=== PATIENT | female | born 1990 | race Caucasian/White ===

== ENCOUNTER 2017-09-17 18:02 | Emergency (ER) | payer BC ==
--- NOTE | 2017-09-17 18:13 | PDOC ---
Rapid Medical Evaluation Time Seen by Provider: 09/17/17 18:10 Medical Evaluation: 09/17/17 18:10 Pt presents with complaint of : lt abd pain, now nausea, diarrhea, ? black stool On brief exam: VSS I have ordered the following: ua, upreg, cbc, comp, stool for guaic Pt will go to the Emergency Dept for further workup: Discharge Disposition - Diagnosis Left lateral abdominal pain - Referrals - Patient Instructions - Post Discharge Activity
[2017-09-17 18:15] VITALS: TEMP 97.6
[2017-09-17 18:38] LABS: BASOPHIL 0.6 % (0-2.0); EOSINOPHIL 1.2 % (0-4.5); MCH 29.5 pg (25.7-33.7); MCHC 33.7 g/dl (32.0-36.0); MEAN CELL VOLUME 87.7 fl (80-96); MEAN PLT VOLUME 9.3 fl (7.5-11.1); NEUTROPHILS 61.3 % (42.8-82.8); PLATELET COUNT 206 K/MM3 (134-434); RDW 12.9 % (11.6-15.6); WHITE BLOOD COUNT 6.8 K/mm3 (4.0-10.0)
[2017-09-17 18:41] LABS: URINE APPEARANCE CLEAR; URINE BILIRUBIN NEGATIVE (NEGATIVE); URINE BLOOD NEGATIVE (NEGATIVE); URINE COLOR COLORLESS; URINE GLUCOSE (UA) NEGATIVE (NEGATIVE); URINE KETONE NEGATIVE (NEGATIVE); URINE NITRITE NEGATIVE (NEGATIVE); URINE PROTEIN NEGATIVE (NEGATIVE); URINE UROBILINOGEN NEGATIVE mg/dL (0.2-1.0)
[2017-09-17 19:14] VITALS: BP 131/74; PULSE 87
[2017-09-17 19:35] LABS: ALBUMIN 4.2 g/dl (3.4-5.0); ANION GAP 8 (8-16); BILIRUBIN,TOTAL 0.3 mg/dL (0.2-1.0); CALCIUM 8.7 mg/dL (8.5-10.1); CO2 27 mmol/L (21-32); CREATININE 0.7 mg/dL (0.55-1.02); GLUCOSE,RANDOM 103 mg/dL (74-106); SGOT/AST 17 U/L (15-37); SGPT/ALT 25 U/L (12-78); TOT PROT 7.7 g/dl (6.4-8.2)
[2017-09-17 19:36] LABS: ALK PHOS 57 U/L (45-117)
--- NOTE | 2017-09-17 20:44 | PDOC ---
History of Present Illness <Mayela Alba - Last Filed: 09/17/17 20:41> - General History Source: Patient Exam Limitations: No Limitations - History of Present Illness Initial Comments: 09/17/17 21:02 Patient is a 27 year old female with no significant past medical history who presents to the ED with complaints of left lower quadrant abdominal pain that began 3 months ago. As per patient's , patient began experiencing left lower quadrant abdominal pain 3 months ago suddenly while at home. She reports left lower quadrant abdominal pain was bearable for 3 months until she began experiencing nausea and vomiting secondary to left lower quadrant pain 4 days ago. Patient's states patient experienced 1 episode of black stool yesterday afternoon. Patient's family are worried for colon cancer. Denies chest pain, SOB. Denies fever, chills. Denies dysuria, constipation, diarrhea. Denies contact with sick individuals. Denies any other symptoms. Allergies: None Social history: Lives with . Current Smoker (20 Cigarettes per day). No alcohol. No illicit drugs. Fam hx : Uncle colon cancer (unknown age ). Surgical history: None PMD: None <Fan Pinedo - Last Filed: 09/17/17 21:03> - General Chief Complaint: Pain Stated Complaint: PAIN, ACUTE Time Seen by Provider: 09/17/17 18:10 Past History - Past Medical History COPD: No Other medical history: denies - Suicide/Smoking/Psychosocial Hx Smoking History: Current every day smoker Number of Cigarettes Smoked Daily: 20 Information on smoking cessation initiated: No <Mayela Alba - Last Filed: 09/17/17 20:41> <Fan Pinedo - Last Filed: 09/17/17 21:03> - Past Medical History Allergies/Adverse Reactions: Allergies Allergy/AdvReac Type Severity Reaction Status Date / Time No Known Allergies Allergy Verified 09/17/17 18:15 Home Medications: Ambulatory Orders NK [No Known Home Medication] 09/17/17 Review of Systems - Review of Systems Able to Perform ROS?: Yes Comments:: 09/17/17 21:02 CONSTITUTIONAL: Absent: fever, chills, diaphoresis, generalized weakness, malaise, loss of appetite HEENT: Absent: rhinorrhea, nasal congestion, throat pain, throat swelling, difficulty swallowing, mouth swelling, ear pain, eye pain, visual Changes CARDIOVASCULAR: Absent: chest pain, syncope, palpitations, irregular heart rate, lightheadedness , peripheral edema RESPIRATORY: Absent: cough, shortness of breath, dyspnea with exertion, orthopnea, wheezing, stridor, hemoptysis GASTROINTESTINAL: Absent: abdominal pain, abdominal distension, nausea, vomiting, diarrhea, constipation, melena, hematochezia GENITOURINARY: Absent: dysuria, frequency, urgency, hesitancy, hematuria, flank pain, genital pain MUSCULOSKELETAL: Absent: myalgia, arthralgia, joint swelling SKIN: Absent: rash, itching, pallor HEMATOLOGIC/IMMUNOLOGIC: Absent: easy bleeding, easy bruising, lymphadenopathy, frequent infections ENDOCRINE: Absent: unexplained weight gain, unexplained weight loss, heat intolerance, cold intolerance NEUROLOGIC: Absent: headache, focal weakness or paresthesias, dizziness, unsteady gait, seizure, mental status changes, bladder or bowel incontinence PSYCHIATRIC: Absent: anxiety, depression, suicidal or homicidal ideation, hallucinations. All Other Systems: Reviewed and Negative <Fan Pinedo - Last Filed: 09/17/17 21:03> *Physical Exam - Vital Signs Last Vital Signs Temp Pulse Resp BP Pulse Ox 97.6 F 87 17 131/74 100 09/17/17 18:11 09/17/17 19:13 09/17/17 19:13 09/17/17 19:13 09/17/17 19:13 <Mayela Alba - Last Filed: 09/17/17 20:41> - Vital Signs Last Vital Signs Temp Pulse Resp BP Pulse Ox 97.6 F 87 17 131/74 100 09/17/17 18:11 09/17/17 19:13 09/17/17 19:13 09/17/17 19:13 09/17/17 19:13 - Physical Exam Comments: 09/17/17 21:03 GENERAL: Well developed, well nourished. Awake and alert. No acute distress. HEENT: Normocephalic, atraumatic. PERRLA, EOMI. No conjunctival pallor. Sclera are non- icteric. Moist mucous membranes. Oropharynx is clear. NECK: Supple. Full ROM. No JVD. Carotid pulses 2+ and symmetric, without bruits. No thyromegaly. No lymphadenopathy. CARDIOVASCULAR: Regular rate and rhythm. No murmurs, rubs, or gallops. Distal pulses are 2+ and symmetric. PULMONARY: No evidence of respiratory distress. Lungs clear to auscultation bilaterally. No wheezing, rales or rhonchi. ABDOMINAL: Soft. Non-tender. Non-distended. No rebound or guarding. No organomegaly. Normoactive bowel sounds. MUSCULOSKELETAL: +Lower back pain with slight superpubic pain. Normal range of motion at all joints. No bony deformities or tenderness. RECTAL: +Brown stool. No hemorrhoids. Normal Rectal Tone. EXTREMITIES: No cyanosis. No clubbing. No edema. No calf tenderness. SKIN: Warm and dry. Normal capillary refill. No rashes. No jaundice. NEUROLOGICAL: Alert, awake, appropriate. Cranial nerves 2-12 intact. No deficits to light touch and temperature in face, upper extremities and lower extremities. No motor deficits in the in face, upper extremities and lower extremities. Normoreflexic in the upper and lower extremities. Normal speech. Toes are down-going bilaterally. PSYCHIATRIC: Cooperative. Good eye contact. Appropriate mood and affect. <Fan Pinedo - Last Filed: 09/17/17 21:03> ED Treatment Course - LABORATORY CBC & Chemistry Diagram: 09/17/17 18:20 09/17/17 18:20 - ADDITIONAL ORDERS Additional order review: Laboratory Results 09/17/17 09/17/17 09/17/17 20:07 18:20 18:20 Sodium 139 Potassium 3.6 Chloride 104 Carbon Dioxide 27 Anion Gap 8 BUN 10 Creatinine 0.7 Creat Clearance w eGFR > 60 Random Glucose 103 Calcium 8.7 Total Bilirubin 0.3 AST 17 ALT 25 Alkaline Phosphatase 57 Total Protein 7.7 Albumin 4.2 Urine Color Colorless Urine Appearance Clear Urine pH 6.0 Ur Specific [place] 1.001 Urine Protein Negative Urine Glucose (UA) Negative Urine Ketones Negative Urine Blood Negative Urine Nitrite Negative Urine Bilirubin Negative Urine Urobilinogen Negative Urine HCG, Qual Negative Stool Occult Blood Negative 09/17/17 18:20 RBC 4.60 MCV 87.7 MCHC 33.7 RDW 12.9 MPV 9.3 Neutrophils % 61.3 Lymphocytes % 30.9 Monocytes % 6.0 Eosinophils % 1.2 Basophils % 0.6 <Mayela Alba - Last Filed: 09/17/17 20:41> - LABORATORY CBC & Chemistry Diagram: 09/17/17 18:20 09/17/17 18:20 - ADDITIONAL ORDERS Additional order review: Laboratory Results 09/17/17 09/17/17 09/17/17 20:07 18:20 18:20 Sodium 139 Potassium 3.6 Chloride 104 Carbon Dioxide 27 Anion Gap 8 BUN 10 Creatinine 0.7 Creat Clearance w eGFR > 60 Random Glucose 103 Calcium 8.7 Total Bilirubin 0.3 AST 17 ALT 25 Alkaline Phosphatase 57 Total Protein 7.7 Albumin 4.2 Urine Color Colorless Urine Appearance Clear Urine pH 6.0 Ur Specific [place] 1.001 Urine Protein Negative Urine Glucose (UA) Negative Urine Ketones Negative Urine Blood Negative Urine Nitrite Negative Urine Bilirubin Negative Urine Urobilinogen Negative Urine HCG, Qual Negative Stool Occult Blood Negative 09/17/17 18:20 RBC 4.60 MCV 87.7 MCHC 33.7 RDW 12.9 MPV 9.3 Neutrophils % 61.3 Lymphocytes % 30.9 Monocytes % 6.0 Eosinophils % 1.2 Basophils % 0.6 <Fan Pinedo - Last Filed: 09/17/17 21:03> *DC/Admit/Observation/Transfer <Mayela Alba - Last Filed: 09/17/17 20:41> - Attestations Scribe Attestion: 09/17/17 21:03 Documentation prepared by Fan Pinedo, acting as esthetician and manager medical spa for Mayela Alba MD/DO. <Fan Pinedo - Last Filed: 09/17/17 21:03> Diagnosis at time of Disposition: Left lateral abdominal pain - Discharge Dispostion Disposition: HOME Condition at time of disposition: Stable - Referrals Referrals: Slava Washington MD [Staff Physician] - Kristopher Gilbert MD [Staff Physician] - - Patient Instructions Printed Discharge Instructions: DI for Pelvic Pain, DI for Flank Pain Additional Instructions: If your symptoms continue,please followup with your doctor
[2017-09-17 21:36] LABS: URINE LEUK ESTERASE Negative (NEGATIVE)
== END 2017-09-17 20:51 | disposition home or self-care (01) ==
LOC: JER 18:02
DX: R10.32 Left lower quadrant pain (principal); F17.210 Nicotine dependence, cigarettes, uncomplicated
CPT/HCPCS: 36415; 80053; 81003; 82272; 84703; 85025; 99283-25